=== PATIENT | male | born 1995 | race Caucasian/White ===

== ENCOUNTER 2021-12-07 11:43 | Outpatient (CLI) | payer BC, SELFPAY ==
[2021-12-07 12:11] LABS: Basophils Percent Auto 0.4 % (0.2-1.2); Eosinophils Absolute Auto 0.1 K/mm3 (0-0.3); Eosinophils Percent Auto 0.8 % (0-4.4); Hematocrit 52.6 % (42.0-52.0); Hemoglobin 17.2 g/dL (14.0-18.0); Immature Granulocyte Absolute 0.02 K/mm3 (0.00-0.031); Immature Granulocyte Percent A 0.3 % (0-0.5); Lymphocytes Absolute Auto 2.87 K/mm3 (0.9-3.2); Lymphocytes Percent Auto 38.8 % (18.3-44.2); Mean Corpuscular HGB Conc 32.7 g/dl (32-36); Mean Corpuscular Hemoglobin 29.2 pg (26-34); Mean Corpuscular Volume 89.3 fl (80-100); Monocytes Absolute Auto 0.6 K/mm3 (0.1-0.6); Monocytes Percent Auto 8.3 % (2.6-8.5); Neutrophils Absolute Auto 3.8 K/mm3 (1.3-6.7); Neutrophils Percent Auto 51.4 % (45.5-73.1); Platelet Count Result 295 k/mm3 (150-375); Red Blood Count 5.89 M/mm3 (4.6-6.20); Red Cell Distribution Width 12.4 % (11.5-14.5); White Blood Count 7.4 K/mm3 (4.5-10.0)
[2021-12-07 14:35] LABS: Alanine Aminotransferase 33 U/L (6-50); Albumin Level 5.3 g/dL (3.5-5.1); Alkaline Phosphatase 76 U/L (38-126); Anion Gap 8 mmol/L (8-16); Aspartate Amino Transferase 32 U/L (17-59); Bilirubin,Total 0.4 mg/dL (0.2-1.3); Blood Urea Nitrogen 15 mg/dL (9-20); Calcium 9.4 mg/dL (8.4-10.2); Carbon Dioxide 28 mmol/L (22-30); Chloride 101 mmol/L (98-107); Estimated Glomerular Filt Rate > 60; Glucose 87 mg/dL (65-110); Potassium 3.6 mmol/L (3.4-5.0); Sodium 137 mmol/L (137-145)
[2021-12-07 14:36] LABS: Iron 146 ug/dL (49-181)
[2021-12-07 14:46] LABS: Percent Iron Saturation 40 % (20-50)
[2021-12-09 20:49] LABS: Erythropoietin (EPO) 1.9 mIU/mL (2.6-18.5)
== END 2021-12-07 11:44 | disposition home or self-care (01) ==
PROVIDERS: Visit Provider Internal Medicine Hematology & Oncology
DX: D75.1 Secondary polycythemia (principal); E83.110 Hereditary hemochromatosis
CPT/HCPCS: 36415; 80053; 82668; 82728; 83540; 83550; 85025

== ENCOUNTER 2023-04-13 08:59 | Emergency (ER) | payer BC, SELFPAY ==
[2023-04-13 09:06] VITALS: BP 121/70; PULSE 95; RESP 18; TEMP 36.6; O2SAT 100
[2023-04-13 09:31] LABS: Basophils Percent Auto 0.5 % (0.2-1.2); Eosinophils Absolute Auto 0.1 K/mm3 (0-0.3); Eosinophils Percent Auto 1.1 % (0-4.4); Hematocrit 48.5 % (42.0-52.0); Hemoglobin 15.8 g/dL (14.0-18.0); Immature Granulocyte Absolute 0.05 K/mm3 (0.00-0.031); Immature Granulocyte Percent A 0.7 % (0-0.5); Lymphocytes Absolute Auto 2.01 K/mm3 (0.9-3.2); Lymphocytes Percent Auto 26.4 % (18.3-44.2); Mean Corpuscular HGB Conc 32.6 g/dl (32-36); Mean Corpuscular Hemoglobin 29.4 pg (26-34); Mean Corpuscular Volume 90.1 fl (80-100); Monocytes Absolute Auto 0.6 K/mm3 (0.1-0.6); Neutrophils Absolute Auto 4.8 K/mm3 (1.3-6.7); Neutrophils Percent Auto 63.3 % (45.5-73.1); Platelet Count Result 227 k/mm3 (150-375); Red Blood Count 5.38 M/mm3 (4.6-6.20); Red Cell Distribution Width 11.9 % (11.5-14.5); White Blood Count 7.6 K/mm3 (4.5-10.0)
[2023-04-13 09:33] LABS: Appearance Urine Clear (Clear); Bilirubin Urine Negative (Negative); Blood Urine Negative (Negative); Color Urine Yellow (Yellow); Glucose Urine UA Negative (Negative); Ketones Urine Negative (Negative); Leukocyte Esterase Ur Negative LEU/UL (Negative); Nitrate Urine Negative (Negative); Protein Urine Negative (Negative); Specific Grav Ur 1.013 (1.001-1.035); Urobilinogen Urine 0.2 mg/dL (<2.0)
[2023-04-13 10:02] LABS: Alanine Aminotransferase 189 U/L (6-50); Albumin Level 4.6 g/dL (3.5-5.1); Alkaline Phosphatase 123 U/L (38-126); Anion Gap 10 mmol/L (8-16); Aspartate Amino Transferase 112 U/L (17-59); Bilirubin,Total 0.4 mg/dL (0.2-1.3); Blood Urea Nitrogen 13 mg/dL (9-20); Carbon Dioxide 29 mmol/L (22-30); Chloride 103 mmol/L (98-107); Estimated CRCL calculation 116 ml/min; Estimated Glomerular Filt Rate > 60; Glucose 96 mg/dL (65-110); Lipase 77 U/L (23-300); Potassium 3.3 mmol/L (3.4-5.0); Sodium 142 mmol/L (137-145)
[2023-04-13 10:08] LABS: Add Urine Microscopic? NO
--- NOTE | 2023-04-13 10:55 | ED.ABDPAIN ---
HPI - Abdominal Pain General Chief Complaint: Abdominal Pain Stated Complaint: N/V/D, abd pain Time Seen by Provider: 04/13/23 09:13 History of Present Illness HPI narrative: Patient is a 28-year-old male who presents ER with diffuse crampy abdominal pain. Chronic issue but worsening over last couple days. He has had 1 episode of diarrhea. No known sick contacts outside of his daughter who had a GI illness. No fevers or chills or sweats. Reports he is belching and passing flatus repeatedly. Feels lower abdominal pressure with this. Symptoms improve after passing gas. He also reports a bad taste in his mouth when he belches and foul odor. He has not tried any acid reflux medication. He had EGD 2 years ago that was unremarkable. Related Data Allergies Allergy/AdvReac Type Severity Reaction Status Date / Time No Known Allergies Allergy Verified 04/13/23 08:59 Review of Systems Review of Systems: All systems reviewed & are unremarkable except as noted in HPI and below Constitutional: Constitutional: Reports no additional constitutional complaints ENT: Reports system reviewed and no additional complaints, except as documented Cardiovascular: Cardiovascular: Reports no additional cardiovascular complaints Respiratory: Respiratory: Reports no additional respiratory complaints Gastrointestinal: Gastrointestinal: Reports no additional gastrointestinal complaints, Reports bloating, Reports heartburn and Reports diarrhea Genitourinary: Genitourinary: Reports no additional male genitourinary complaints PMFSH Past Medical History Medical History (Updated 04/13/23 @ 11:04 by Curt Marsh MD) IBS (irritable bowel syndrome) Low testosterone in male Surgical History Surgical History (Updated 04/13/23 @ 11:04 by Curt Marsh MD) No pertinent past surgical history Exam Narrative: GENERAL: Well-appearing, well-nourished, and in no acute distress. HEAD: Normocephalic, atraumatic. ENT: Mucous membranes moist. CHEST: Clear to auscultation. No respiratory distress. HEART: Regular rate and rhythm. Normal peripheral pulses. ABDOMEN: Soft, nontender, nondistended. EXTREMITIES: Normal range of motion. No edema. NEURO: Alert and oriented x3. PSYCH: Normal mood and affect. Course Course Emergency Course: Benign exam. Discussed lab results. Discussed conservative treatment for home. Vital Signs Vital signs: Vital Signs Temperature 97.9 F 04/13/23 09:06 Pulse Rate 95 04/13/23 09:06 Respiratory Rate 18 04/13/23 09:06 Blood Pressure 121/70 04/13/23 09:06 Pulse Oximetry 100 04/13/23 09:06 Oxygen Delivery Room Air 04/13/23 09:06 Temperature 97.9 F 04/13/23 09:06 Pulse Rate 73 04/13/23 10:56 Respiratory Rate 19 04/13/23 10:56 Blood Pressure 117/76 04/13/23 10:56 Pulse Oximetry 98 04/13/23 10:56 Oxygen Delivery Room Air 04/13/23 09:06 MDM - Abdominal Pain Lab Data 04/13/23 09:25 04/13/23 09:25 Labs: Lab Results 04/13/23 Range/Units 09:25 WBC 7.6 (4.5-10.0) K/mm3 RBC 5.38 (4.6-6.20) M/mm3 Hgb 15.8 (14.0-18.0) g/dL Hct 48.5 (42.0-52.0) % MCV 90.1 (80-100) fl MCH 29.4 (26-34) pg MCHC 32.6 (32-36) g/dl RDW 11.9 (11.5-14.5) % Plt Count 227 (150-375) k/mm3 MPV 10.0 (7.4-10.4) fl Immature Gran % (Auto) 0.7 H (0-0.5) % Neut % (Auto) 63.3 (45.5-73.1) % Lymph % (Auto) 26.4 (18.3-44.2) % Ford % (Auto) 8.0 (2.6-8.5) % Eos % (Auto) 1.1 (0-4.4) % Baso % (Auto) 0.5 (0.2-1.2) % Lymph # (Auto) 2.01 (0.9-3.2) K/mm3 Ford # (Auto) 0.6 (0.1-0.6) K/mm3 Eos # (Auto) 0.1 (0-0.3) K/mm3 Baso # (Auto) 0.0 (0.0-0.1) K/mm3 Abs Immat Gran (auto) 0.05 H (0.00-0.031) K/mm3 Absolute Neuts (auto) 4.8 (1.3-6.7) K/mm3 Absolute Nucleated RBC 0.0 (0.0-0.012) K/mm3 Nucleated RBC % 0.0 (0.0-0.2) % Sodium 142 (137-145) mmol/L Potassium 3.3 L (3.4-5.0) mmol/L C
[2023-04-13 10:56] VITALS: BP 117/76; PULSE 73; RESP 19; O2SAT 98
== END 2023-04-13 11:07 | disposition home or self-care (01) ==
PROVIDERS: Emergency Provider Emergency Medicine; PCP Family Medicine
DX: K21.9 Gastro-esophageal reflux disease without esophagitis (principal); R14.0 Abdominal distension (gaseous); R10.9 Unspecified abdominal pain
CPT/HCPCS: 36415; 80053; 81001; 81003; 83690; 85025; 99283